=== PATIENT | female | born 1995 | race Caucasian/White ===

== ENCOUNTER 2022-04-29 13:01 | Emergency (ER) | payer OTHER ==
[~2022-04-29] VITALS: Ht 172.7 cm; Wt 98.0 kg
[2022-04-29 13:23] VITALS: BP 135/82
[2022-04-29 13:48] LABS: URINE BILIRUBIN - DIPSTICK NEGATIVE (NEGATIVE); URINE BLOOD DIPSTICK LARGE (NEGATIVE); URINE COLOR YELLOW; URINE GLUCOSE - DIPSTICK NEGATIVE (NEGATIVE); URINE KETONE 15 mg/dL (NEGATIVE); URINE LEUK ESTERASE NEGATIVE (NEGATIVE); URINE PH 5.5 (4.5-8.0); URINE PROTEIN - DIPSTICK NEGATIVE (NEG-TRACE); URINE SPECIFIC GRAVITY 1.025; URINE UROBILINOGEN - DIPSTICK 0.2 E.U./dL (0.2)
[2022-04-29 13:53] LABS: URINE NITRITE - DIPSTICK NEGATIVE (Negative)
[2022-04-29 13:57] LABS: HEMATOCRIT 43.3 % (37.0-47.0); HEMOGLOBIN 14.7 g/dl (12.0-16.0); IMMATURE GRANULOCYTES 0.2 % (0.0-5.0); MEAN CELL VOLUME 87.3 fL CALC (80.0-100.0); MEAN CORPUSCULAR HGB 29.6 pG CALC (26.0-32.0); MEAN CORPUSCULAR HGB CONC 33.9 g/dL CAL (32.0-36.0); NEUT# 16.04 thou/uL (2.00-7.15); RED BLOOD COUNT 4.96 mill/uL (4.20-5.60); RED CELL DISTRI WIDTH 12.1 % (11.5-15.5)
[2022-04-29 13:58] LABS: ALBUMIN 4.5 g/dL (3.2-5.0); ALKALINE PHOSPHATASE 59 u/l (38-126); ANION GAP 14 (6-22 (CALC)); BILIRUBIN, TOTAL 0.5 mg/dL (0.0-1.4); BUN 9 mg/dL (7-17); BUN/CREATININE RATIO 14 (12-20 (CALC)); CARBON DIOXIDE 23 mmol/l (22-30); CHLORIDE 104 mmol/l (95-108); CREATININE 0.6 mg/dL (0.5-1.0); GFR FOR AFR.AMER. > 60 ML/MIN (>=60 (CALC)); GFR OTHER RACES > 60 ML/MIN (>=60 (CALC)); LIPASE 24 u/l (23-300); POTASSIUM 3.7 mmol/l (3.5-5.1); SGOT/AST 24 u/l (14-36); SODIUM 138 mmol/l (137-146); TOTAL PROTEIN 7.2 g/dL (6.3-8.2)
[2022-04-29 14:01] LABS: URINE RBC 50-100 RBC/hpf (0-5)
[2022-04-29 14:02] LABS: URINE EPITHELIAL CELLS FEW EPI/hpf (0-FEW)
[2022-04-29 14:56] VITALS: BP 105/67
[2022-04-29 15:00] VITALS: BP 111/72
[2022-04-29 15:15] VITALS: BP 114/74
[2022-04-29 15:30] VITALS: BP 112/73
[2022-04-29] MEDS ORDERED: HYDROCO/APAP1 TA9 PO (17:42)
[2022-04-29] MEDS ORDERED: TORADOL PO (17:42)
[2022-04-29] MEDS ORDERED: PROTONIX40 MG PO (17:42)
[2022-04-29] MEDS ORDERED: ONDANSETRON4 MG PO (17:42)
[2022-04-29 18:02] VITALS: BP 112/73
== END 2022-04-29 18:12 | disposition home or self-care (01) ==
LOC: ED 13:01
PROVIDERS: Nurse Practitioner
DX: R10.13 Epigastric pain (principal); R10.33 Periumbilical pain
CPT/HCPCS: Q9967; S0164

== ENCOUNTER 2022-12-21 07:49 | Emergency (ER) | payer OTHER ==
[~2022-12-21] VITALS: Ht 172.7 cm; Wt 84.0 kg
[2022-12-21] VITALS (15 sets, daily range): BP systolic 87–110; BP diastolic 53–78
[~2022-12-21 07:49] MED LIST: HYDROCO/APAP1 TA9 PO; ONDANSETRON4 MG PO; PROTONIX40 MG PO; TORADOL PO
[2022-12-21 08:28] LABS: URINE BLOOD DIPSTICK NEGATIVE (NEGATIVE); URINE COLOR YELLOW; URINE GLUCOSE - DIPSTICK NEGATIVE (NEGATIVE); URINE KETONE 15 mg/dL (NEGATIVE); URINE PROTEIN - DIPSTICK TRACE mg/dL (NEG-TRACE); URINE SPECIFIC GRAVITY 1.025; URINE UROBILINOGEN - DIPSTICK 0.2 E.U./dL (0.2)
[2022-12-21 08:30] LABS: URINE BILIRUBIN - DIPSTICK SEE COMMNET (NEGATIVE); URINE LEUK ESTERASE MODERATE (NEGATIVE); URINE NITRITE - DIPSTICK NEGATIVE (Negative)
[2022-12-21 08:37] LABS: URINE BACTERIA MANY hpf; URINE SQUAMOUS EPITHELIAL CELL MODERATE EPI/hpf (0-FEW)
[2022-12-21 08:44] LABS: ALBUMIN 3.9 g/dL (3.2-5.0); ALKALINE PHOSPHATASE 58 u/l (38-126); ANION GAP 11 (6-22 (CALC)); BILIRUBIN, TOTAL 0.4 mg/dL (0.02-1.3); BUN 6 mg/dL (7-17); BUN/CREATININE RATIO 11 (12-20 (CALC)); CARBON DIOXIDE 25 mmol/l (22-30); CHLORIDE 104 mmol/l (95-108); CREATININE 0.6 mg/dL (0.5-1.0); GFR FOR AFR.AMER. > 60 ML/MIN (>=60 (CALC)); GFR OTHER RACES > 60 ML/MIN (>=60 (CALC)); POTASSIUM 3.5 mmol/l (3.5-5.1); SGOT/AST 27 u/l (14-36); SODIUM 136 mmol/l (137-146)
[2022-12-21 08:51] LABS: BASO% 0.3 % (0-3); HEMATOCRIT 39.5 % (37.0-47.0); HEMOGLOBIN 12.8 g/dl (12.0-16.0); IMMATURE GRANULOCYTES 0.4 % (0.0-5.0); LYMPH% 21.7 % (15-41); MEAN CELL VOLUME 89.4 fL CALC (80.0-100.0); MEAN CORPUSCULAR HGB CONC 32.4 g/dL CAL (32.0-36.0); MONO% 6.4 % (2-13); NEUT# 6.28 thou/uL (2.00-7.15); NEUT% 68.2 % (42-76); RED BLOOD COUNT 4.42 mill/uL (4.20-5.60); RED CELL DISTRI WIDTH 12.1 % (11.5-15.5)
[2022-12-21] MEDS ORDERED: MACROBID100 M1 PO (10:42)
[2022-12-21] MEDS ORDERED: ZOFRAN4 MG/TAB PO (10:42)
== END 2022-12-21 11:08 | disposition home or self-care (01) ==
LOC: ED 07:49
PROVIDERS: Family Medicine
DX: O21.9 Vomiting of pregnancy, unspecified (principal); O99.280 Endocrine, nutritional and metabolic diseases complicating pregnancy, unspecified trimester; E86.0 Dehydration; O26.899 Other specified pregnancy related conditions, unspecified trimester; R19.7 Diarrhea, unspecified; R82.71 Bacteriuria; Z3A.00 Weeks of gestation of pregnancy not specified